=== PATIENT | male | born 1955 | race Hispanic/Latino ===

== ENCOUNTER 2017-06-02 00:02 | Day surgery (SDC) | payer OTHER ==
[~2017-06-02] VITALS: Ht 165.1 cm; Wt 90.0 kg
[~2017-06-02 00:02] MED LIST: CALC0.257 PO; FUR20 PO; HYDR100T27 PO; METO100T3 PO; MULT-1018 PO; SODI325T PO; [UNRECOGNIZED DRUG - CODE] PO
[2017-06-02 06:30] VITALS: BP 193/102; PULSE 71; RESP 16; O2SAT 97
--- NOTE | 2017-06-02 06:30 | NUR ---
ADMISSION NOTE MALE PT ADMITTED FOR TUNNEL CATH. DISCUSSED PLAN OF CARE WITH PT AND FAMILY WITH PACKAGE WINDER. SEE ADMIT AND FLOW SHEET
[2017-06-02 07:24] LABS: Mean Corpuscular Hemoglobin 29.2 pg (27.0-35.0); Mean Corpuscular Volume 87.7 fL (81-100)
[2017-06-02 07:40] LABS: INR 0.92 ratio
[2017-06-02] MEDS ORDERED: Heparin 1,000 Unit/mL 10 mL Inj ONE (07:43)
[2017-06-02] MEDS ORDERED: Heparin 10,000 Unit/1,000 mL NS Premix IV ONE (07:43)
[2017-06-02] MEDS ORDERED: 0.9% Sodium Chloride 1,000 ML IV ONE (08:40)
[2017-06-02] MEDS ORDERED: fentaNYL-PF 50 mCg/mL 2 mL Inj ONE (08:51)
[2017-06-02 09:30] VITALS: BP 186/94; PULSE 73; RESP 16; O2SAT 100
--- NOTE | 2017-06-02 09:30 | NUR ---
POST PROCEDURE NOTE RETURNED FROM RECORD CUTTER .SEE FLOW SHEET
[2017-06-02 09:44] VITALS: BP 163/99; PULSE 66; RESP 16; O2SAT 100
[2017-06-02 10:00] VITALS: BP 174/99; PULSE 67; RESP 16; O2SAT 98
[2017-06-02 10:30] VITALS: BP 178/103; PULSE 65; RESP 16; O2SAT 98
[2017-06-02 10:58] VITALS: BP 175/94; PULSE 66; RESP 16; O2SAT 98
--- NOTE | 2017-06-02 11:22 | DRSVH ---
PROCEDURE: CV TUNNEL CATH PLCMNT 1. Sonographic guidance for venous access. 2. Conscious sedation for 30 minutes. 3. Right internal jugular vein tunneled hemodialysis catheter placement. 4. Fluoroscopic guidance for catheter placement. INDICATIONS: Stage renal disease TECHNIQUE: The indications, alternatives, benefits, risks, and complications of the procedure were e xplained to the patient and any family members present. Informed written consent was obtained and pl aced in the chart. The patient was brought to the angiography suite, and conscious sedation was admi nistered intravenously by senior living staff, while continuous cardiorespiratory monitoring was pe rformed. Maximum sterile barrier technique was employed per standard protocol, including hand hygiene, cap, ma sk, sterile gown and gloves, and 2% chlorhexidine. Sterile ultrasound probe cover was also utilized. 1% lidocaine was used for local anaesthesia. Under sonographic guidance, the right internal jugular vein was accessed with a Micropuncture set. An 0.035J wire was advanced into the vena cava. Subcuta neous tunnel was created within the right anterior chest wall, through which a 14.5 Uzbek double lum en tunneled hemodialysis catheter was advanced. Following sequential venotomy tract dilation, the ca theter was advanced through the peel-away sheath and the tip was placed at the cavoatrial junction. Peel-away sheath was removed. Adequate flow was obtained through both lumens of the catheter. The v enotomy was closed with Dermabond, and the catheter was fastened to the skin with Ticron. Both lumen s were flushed with heparinized saline. The patient tolerated the procedure without difficulty and was in stable condition at the conclusion of the procedure. COMPARISON: None. FINDINGS: The right internal jugular vein is patent by ultrasound. Fluoroscopic imaging demonstrates tip of th e catheter at the cavoatrial junction. IMPRESSION: Right internal jugular vein tunneled hemodialysis catheter placement using sonographic and fluoroscop ic guidance. Dictated by: Anca Lainez M.D. on 06/02/2017 at 11:17 Approved by: Anca Lainez M.D. on 06/02/2017 at 11:20
--- NOTE | 2017-06-02 12:00 | NUR ---
DISCHARGED TO HOME, INSTRUCTIONS GIVEN
== END 2017-06-02 23:59 | disposition home or self-care (01) ==
LOC: SOUO 00:02
PROVIDERS: ATTEND Radiology Vascular & Interventional Radiology
DX: E11.22 Type 2 diabetes mellitus with diabetic chronic kidney disease (principal); E11.21 Type 2 diabetes mellitus with diabetic nephropathy; I12.0 Hypertensive chronic kidney disease with stage 5 chronic kidney disease or end stage renal disease; N18.6 End stage renal disease; Z79.84 Long term (current) use of oral hypoglycemic drugs; E78.5 Hyperlipidemia, unspecified; D64.9 Anemia, unspecified; Z87.891 Personal history of nicotine dependence; E87.2 Acidosis; N25.0 Renal osteodystrophy
CPT/HCPCS: 36415; 36558; 76937; 77001; 80048; 85027; 85610; 85730; 99152; C1750; C1769; J1644; J2250; J3010

== ENCOUNTER 2017-06-02 20:21 | Emergency (ER) | payer OTHER ==
[~2017-06-02] VITALS: Ht 165.1 cm; Wt 91.8 kg
[2017-06-02 20:25] VITALS: BP 206/103; PULSE 69; RESP 21; O2SAT 97
--- NOTE | 2017-06-02 21:46 | ED.REPORT ---
HPI-General Illness Date of Service Jun 02, 2017 ED Provider: Raj Reyes DO Patient is a 61 year old male with a history of diabetes and hypertension who presents to the ED due to his dialysis cath bleeding. The patient reports that the catheter was placed this morning and he was told to get the site checked if it started bleeding through the dressing. Per the patient's daughter, the patient was picking up and holding his grandson earlier even though he was told not to lift heavy things. Patient has no other complaints at this time. Nursing Notes Stated Complaint: CATH BLEEDING Chief Complaint: General Complaint Nursing Notes Reviewed: Yes Allergies: Coded Allergies: ibuprofen (Verified Allergy, Severe, swells , hives, 06/02/17) NSAIDS (Non-Steroidal Anti-Inflamma (Verified Allergy, Intermediate, ) aspirin (Verified Allergy, Unknown, 06/02/17) Scheduled Calcitriol (Rocaltrol) 0.25 Mcg Capsule 1 MCG PO BID Furosemide (Furosemide) 20 Mg Tab 20 MG PO DAILY Glipizide ER (Glucotrol XL) 2.5 Mg Tablet 2.5 MG PO DAILY Hydralazine (Hydralazine) 100 Mg Tablet 100 MG PO BID Metoprolol Tartrate (Metoprolol Tartrate) 100 Mg Tablet 200 MG PO BID Multivitamin (Multi Vitamin Daily) 1 Each Tablet 1 EACH PO DAILY Sodium Bicarbonate (Sodium Bicarbonate) 325 Mg Tablet 650 MG PO TID General Time Seen by MD: 21:45 Chief Complaint Other (bleeding cath site) Hx Obtained From: Patient Arrived By: Walk-in Sudden in Onset?: Yes Onset Occurred: Just prior to arrival Symptom Duration: Since onset Location: : Chest Severity: Current: No pain currently Recent Healthcare: Recent doctor visit Similar Sx Previous: No Past Medical History Past Medical History DM HTN Past Surgical History denies Family History noncontributory Smoking History Never Smoker Social History Alcohol Use: Denies alcohol use Drug Use: Denies drug use Other Social History: Good social support Ambulatory Status Independent Review of Systems +bleeding cath site Full Review of Systems Constitutional: Denies: Chills, Fever Respiratory: Denies: Non-productive cough, Shortness of breath Cardiovascular: Denies: Chest pain Skin: Denies Bruising, Denies Diaphoresis, Denies Itching, Denies Rash Complete sys rev & neg: except as marked. Physical Exam Vital Signs Vital Signs Date Time Temp Pulse Resp B/P Pulse Ox O2 Delivery O2 Flow Rate FiO2 06/02/17 23:22 69 18 182/107 98 Room Air 06/02/17 22:34 74 24 216/110 99 Room Air 06/02/17 20:25 37.2 69 21 206/103 97 Room Air Initial VS: Reviewed General/Constitutional: Awake, Alert, No acute distress Head / Eyes: Atraumatic, Normocephalic, PERRL, EOMI Respiratory / Chest: Atraumatic, Breath sounds NL, Breath sounds = bilat, No respiratory distress no active bleeding tunnel catheter with clot on right upper chest Cardiovascular: Heart rate NL, Regular rhythm, Heart sounds NL Skin: Atraumatic, Color NL, No rash, Warm, Dry Neurologic: Oriented X3, Speech NL, No motor deficits, No sensory deficits Psychiatric: Affect NL, Mood NL Re-Eval/Medical Decision Med Decision/Clinical Course No active hemorrhage after observation. His blood pressure was quite elevated so therefore is given a dose of clonidine. Half hour later's blood pressure was 170. No further bleeding. He suspects to take his oral antihypertensives when he gets home. I expect that his blood pressure be better managed after his dialysis was initiated. No signs of end organ disease beyond the fact that these are not lost his kidneys. No chest pain. No shortness of breath. No headache or visual disturbances. Further workup not indicated at this time. Time of Eval: 22:23 Re-Evaluation/Progress Note: Site has no active bleeding. Discussed plan for discharge. Patient understands and agrees to plan. All questions were addressed. Counseled Regarding: Diagnosis, Need for follow-up, When/why to return to ED Discharge & Departure Primary Impression: Visit for wound check Disposition: Home Discharge Condition All VS Reviewed: Yes Condition: Stable Additional Instructions: Your catheter is no longer bleeding. Keep the site covered as directed until your dialysis appointment. Call your surgeon if it bleeds again. Return to the emergency department if you develop any new or concerning symptoms. Referrals: Kathryn Guerrero MD (PCP) (Family) Scribe Attestation Portions of this note were transcribed by Jeanne Theodore. I, Dr. Reyes personally performed the history, physical exam and medical decision-making; I reviewed and confirmed the accuracy of the information in the transcribed note. Signed by: Jeanne Farmer, 06/02/17 copies to: Kathryn Guerrero MD, Todd P DO Jun 02, 2017 21:45 Alem Theodore Jun 02, 2017 21:55
[2017-06-02 22:34] VITALS: BP 216/110; PULSE 74; RESP 24; O2SAT 99
[2017-06-02] MEDS ORDERED: cloNIDine 0.1 mg Tablet PO ONE (22:40)
[2017-06-02 23:22] VITALS: BP 182/107; PULSE 69; RESP 18; O2SAT 98
== END 2017-06-02 23:23 | disposition home or self-care (01) ==
LOC: SED 20:21
DX: Z49.01 Encounter for fitting and adjustment of extracorporeal dialysis catheter (principal); E11.9 Type 2 diabetes mellitus without complications; I10 Essential (primary) hypertension; Z88.6 Allergy status to analgesic agent